=== PATIENT | male | born 1945 | race Caucasian/White ===

== ENCOUNTER 2021-08-14 12:34 | Day surgery (SDC) | payer MEDICARE ==
[2021-08-10 10:15] VITALS: BMI 25.1
[2021-08-14] MEDS ORDERED: Bupivacaine PF 0.5% 30 ML VIAL ONE (13:44)
[2021-08-14] MEDS ORDERED: Betamet Acet/Betamet Na Ph 30 MG/5 ML VIAL ONE (13:44)
[2021-08-14] MEDS ORDERED: Bacitracin Zinc Ointment 30 gm TUBE ONE (13:44)
[2021-08-14] MEDS ORDERED: Fentanyl 100 MCG/2 ML VIAL ONE ×2 (14:11→14:21)
[2021-08-14] MEDS ORDERED: Vancomycin 1 GM/200 ML BAG ONE (14:17)
== END 2021-08-14 17:04 | disposition home or self-care (01) ==
LOC: SDC 12:34
PROVIDERS: ATTEND Orthopaedic Surgery Hand Surgery
PROC: 0RBX0ZZ Excision of Left Finger Phalangeal Joint, Open Approach (ICD-10-PCS; principal; 2021-08-14)
PROC: 0HDQXZZ Extraction of Finger Nail, External Approach (ICD-10-PCS; 2021-08-14)
PROC: 0PBV0ZZ Excision of Left Finger Phalanx, Open Approach (ICD-10-PCS; 2021-08-14)
DX: M25.742 Osteophyte, left hand (principal); M67.442 Ganglion, left hand; M65.331 Trigger finger, right middle finger; M19.041 Primary osteoarthritis, right hand; M19.042 Primary osteoarthritis, left hand; I10 Essential (primary) hypertension; E78.5 Hyperlipidemia, unspecified; I48.91 Unspecified atrial fibrillation; Z79.82 Long term (current) use of aspirin; Z79.899 Other long term (current) drug therapy; Z88.0 Allergy status to penicillin; Z88.8 Allergy status to other drugs, medicaments and biological substances
CPT/HCPCS: 88304; J0702; J3010; J3370; S0020

== ENCOUNTER 2022-12-23 08:31 | Outpatient (CLI) | payer MEDICARE | END 2022-12-23 08:32 | disposition home or self-care (01) | LOC: RAD 08:31 | PROVIDERS: ATTEND Internal Medicine Gastroenterology | DX: R13.10 Dysphagia, unspecified (principal); R63.30 Feeding difficulties, unspecified | CPT/HCPCS: 74230 ==

== ENCOUNTER 2023-03-24 08:38 | Outpatient (CLI) | payer MEDICARE | END 2023-03-24 08:39 | disposition home or self-care (01) | LOC: RAD 08:38 | PROVIDERS: ATTEND Internal Medicine Gastroenterology | DX: R13.10 Dysphagia, unspecified (principal); R63.8 Other symptoms and signs concerning food and fluid intake | CPT/HCPCS: 74230 ==

== ENCOUNTER 2023-07-11 10:57 | Outpatient (CLI) | payer MEDICARE ==
[2023-07-11 11:46] LABS: Hematocrit 44.9 % (38.8-50.0); Hemoglobin 14.9 g/dL (13.5-17.5); Mean Corpuscular HGB CONC 33.2 g/dL (32.0-36.0); Mean Corpuscular Hemoglobin 29.6 pg (27.0-33.0); Mean Corpuscular Volume 89.3 fl (81.2-95.1); Mean Platelet Volume 9.4 fl (7.4-10.4); Platelet Count 265 10x3/uL (150-450); RBC Distribution Width 13.7 % (11.5-14.5); Red Blood Cell (RBC) Count 5.03 10x6/uL (4.32-5.72); White Blood Cell (WBC) Count 8.1 10x3/uL (3.5-10.5)
[2023-07-11 12:23] LABS: Anion Gap 12 mmol/L (10-20); BUN (Urea Nitrogen) 15 mg/dL (8.4-25.7); Calc. Creatinine Clearance 0 mL/min (70-130); Calcium 9.6 mg/dL (7.8-10.44); Carbon Dioxide 28 mmol/L (23-31); Chloride 107 mmol/L (98-107); Estimated GFR 71; Glucose 101 mg/dL (83-110); Potassium 4.5 mmol/L (3.5-5.1); Sodium 142 mmol/L (136-145)
== END 2023-07-11 10:58 | disposition home or self-care (01) ==
LOC: LABBT 10:57
PROVIDERS: ATTEND Specialist
DX: Z01.818 Encounter for other preprocedural examination (principal); J32.4 Chronic pansinusitis; J34.3 Hypertrophy of nasal turbinates; J33.0 Polyp of nasal cavity
CPT/HCPCS: 80048; 85027; 93005; 93010

== ENCOUNTER 2023-07-14 09:29 | Day surgery (SDC) | payer MEDICARE ==
[2023-07-11 11:23] VITALS: BMI 25.1
[2023-07-14] MEDS ORDERED: Oxymetazoline HCl 0.05% (30 ML BOT) ONE (10:44)
[2023-07-14] MEDS ORDERED: fentaNYL PF 100 MCG/2 ML SYRINGE ONE (11:09)
[2023-07-14] MEDS ORDERED: PROPOFOL 20 ML ONE (11:09)
[2023-07-14] MEDS ORDERED: Dexamethasone 20 MG/5 ML VIAL ONE (11:10)
[2023-07-14] MEDS ORDERED: Ondansetron PF 4 MG/2 ML Vial ONE (11:10)
[2023-07-14] MEDS ORDERED: Lidocaine 1% PF 5 ML VIAL ONE (11:10)
[2023-07-14] MEDS ORDERED: Lidocaine 1% (PF) 30 ML VIAL ONE (11:39)
[2023-07-14] MEDS ORDERED: EPINEPHrine 1 MG/ML VIAL ONE (11:39)
[2023-07-14] MEDS ORDERED: SUCCINYLCHOLINE/SOD CL,ISO/PF 200 MG/10 ML SYRINGE FS ONE (11:41)
[2023-07-14] MEDS ORDERED: Triamcinolone 40 MG/ML VIAL ONE (12:23)
[2023-07-14] MEDS ORDERED: methylPREDNISolone Acetate 40 mg/ml Vial ONE (12:25)
== END 2023-07-14 14:30 | disposition home or self-care (01) ==
LOC: SDC 09:29
PROVIDERS: ATTEND Specialist
PROC: 09BV8ZZ Excision of Left Ethmoid Sinus, Via Natural or Artificial Opening Endoscopic (ICD-10-PCS; principal; 2023-07-14)
PROC: 09BQ8ZZ Excision of Right Maxillary Sinus, Via Natural or Artificial Opening Endoscopic (ICD-10-PCS; 2023-07-14)
PROC: 09BR8ZZ Excision of Left Maxillary Sinus, Via Natural or Artificial Opening Endoscopic (ICD-10-PCS; 2023-07-14)
PROC: 09BS8ZZ Excision of Right Frontal Sinus, Via Natural or Artificial Opening Endoscopic (ICD-10-PCS; 2023-07-14)
PROC: 09BT8ZZ Excision of Left Frontal Sinus, Via Natural or Artificial Opening Endoscopic (ICD-10-PCS; 2023-07-14)
PROC: 09BU8ZZ Excision of Right Ethmoid Sinus, Via Natural or Artificial Opening Endoscopic (ICD-10-PCS; 2023-07-14)
PROC: 09BL8ZZ Excision of Nasal Turbinate, Via Natural or Artificial Opening Endoscopic (ICD-10-PCS; 2023-07-14)
PROC: 09BL8ZZ Excision of Nasal Turbinate, Via Natural or Artificial Opening Endoscopic (ICD-10-PCS; 2023-07-14)
DX: J32.4 Chronic pansinusitis (principal); J34.3 Hypertrophy of nasal turbinates; J33.9 Nasal polyp, unspecified; J30.81 Allergic rhinitis due to animal (cat) (dog) hair and dander; J30.89 Other allergic rhinitis; Z88.0 Allergy status to penicillin; Z88.1 Allergy status to other antibiotic agents; Z88.8 Allergy status to other drugs, medicaments and biological substances; Z79.82 Long term (current) use of aspirin; Z79.899 Other long term (current) drug therapy
CPT/HCPCS: 30140; 31240; 31253; 31256; J0171; J1030; J1100; J2001; J2405; J2704; J3301